=== PATIENT | male | born 1945 | race Caucasian/White ===

== ENCOUNTER 2020-10-07 16:03 | Inpatient (IN) ==
[2020-10-07] MEDS ORDERED: Albuterol 2.5 MG/3 ML NEBULIZER IH PRN (16:44)
[2020-10-07] MEDS: Budesonide/Formoterol 160/4.5 1 PUFF INH IH SCH (20:13)
[2020-10-07] MEDS: Apixaban 5 MG TABLET PO SCH (22:07)
[2020-10-07] MEDS: Melatonin 3 MG TABLET PO PRN (22:10)
[2020-10-07] MEDS: Pregabalin 75 MG CAPSULE PO SCH (22:11)
[2020-10-07] MEDS: Chlorhexidine Rinse 15 ML MOUTHWASH MM SCH (22:13)
[2020-10-07] MEDS: Primidone 50 MG TABLET PO SCH (22:14)
[2020-10-08 04:48] LABS: Basophils % 0.1 %; Eosinophils % 0.2 %; Hematocrit 25.6 % (37.5-50.1); Hemoglobin 8.3 g/dL (12.9-16.9); Immature Granulocytes % 2.9 % (0-4); Lymphocytes # 3.6 K/mcL (0.6-4.6); Lymphocytes % 17.3 %; Mean Corpuscular HGB Conc 32.4 g/dL (31.6-35.5); Mean Corpuscular Hemoglobin 25.8 pg (28.0-33.3); Mean Corpuscular Volume 79.5 fL (83.0-100.0); Mean Platelet Volume 10.1 fL (9.4-12.4); Monocytes # 2.1 K/mcL (0.0-1.3); Neutrophils # 14.4 K/mcL (1.6-8.9); Nucleated Red Blood Cells 0.1 /100 WBC (0); Platelet Count 321 K/mcL (140-400); Red Blood Count 3.22 M/mcL (4.19-5.50); Red Cell Distribution Width 20.2 % (11.5-14.5); Segmented Neutrophils % 69.5 %; White Blood Count 20.7 K/mcL (4.3-11.1)
[2020-10-08 05:03] LABS: Alanine Aminotransferase 21 Units/L (7-52); Albumin/Globulin Ratio 1.7 (1.1-2.2); Alkaline Phosphatase 68 Units/L (34-104); Aspartate Amino Transferase 13 Units/L (13-39); BUN/Creatinine Ratio 34 (6-26); Bilirubin,Total 0.2 mg/dL (0.3-1.0); Blood Urea Nitrogen 23 mg/dL (8-23); Calcium 8.1 mg/dL (8.6-10.3); Carbon Dioxide 27 mEq/L (23-29); Chloride 100 mEq/L (98-107); Globulin 1.8 g/dL (2.4-3.5); Glucose 85 mg/dL (70-105); Osmolality,Calculated 281 (280-300); Potassium 3.9 mEq/L (3.5-5.1); Sodium 134 mEq/L (136-145); Total Protein 4.8 g/dL (6.4-8.9); eGFR For African Americans > 60 (> 60); eGFR For Non-African Americans > 60 (> 60)
[2020-10-08] MEDS: Budesonide/Formoterol 160/4.5 1 PUFF INH IH SCH ×2 (08:33→20:03)
[2020-10-08] MEDS: Apixaban 5 MG TABLET PO SCH ×2 (08:46→20:11)
[2020-10-08] MEDS: Thiamine (B-1) 100 MG TABLET PO SCH (08:46)
[2020-10-08] MEDS: predniSONE 20 MG TABLET PO SCH (08:46)
[2020-10-08] MEDS: Vitamin B Complex/Vit C/Vit E 1 EACH TABLET PO SCH (08:46)
[2020-10-08] MEDS: DilTIAZem CD (24hr) 240 MG CAP.ER.24H PO SCH (08:46)
[2020-10-08] MEDS: Folic Acid 1 MG TABLET PO SCH (08:46)
[2020-10-08] MEDS: polyethylene glycoL 3350 17 GM POWD.PACK PO SCH (08:47)
[2020-10-08] MEDS: Pregabalin 75 MG CAPSULE PO SCH ×2 (08:47→20:08)
[2020-10-08] MEDS: Fluticasone Propionate Nasal 50 MCG/SPRAY BOTTLE NS SCH (08:47)
[2020-10-08] MEDS: Chlorhexidine Rinse 15 ML MOUTHWASH MM SCH ×2 (08:47→20:11)
[2020-10-08] MEDS: Nicotine 21 MG PATCH.TD24 TD SCH (08:47)
[2020-10-08] MEDS: Melatonin 3 MG TABLET PO PRN (20:09)
[2020-10-08] MEDS: Primidone 50 MG TABLET PO SCH (20:09)
[2020-10-09] MEDS: Nicotine 21 MG PATCH.TD24 TD SCH (07:53)
[2020-10-09] MEDS: polyethylene glycoL 3350 17 GM POWD.PACK PO SCH (07:53)
[2020-10-09] MEDS: Chlorhexidine Rinse 15 ML MOUTHWASH MM SCH ×2 (07:53→21:11)
[2020-10-09] MEDS: Thiamine (B-1) 100 MG TABLET PO SCH (07:53)
[2020-10-09] MEDS: Pregabalin 75 MG CAPSULE PO SCH ×2 (07:54→21:11)
[2020-10-09] MEDS: predniSONE 20 MG TABLET PO SCH (07:54)
[2020-10-09] MEDS: Folic Acid 1 MG TABLET PO SCH (07:54)
[2020-10-09] MEDS: DilTIAZem CD (24hr) 240 MG CAP.ER.24H PO SCH (07:54)
[2020-10-09] MEDS: Vitamin B Complex/Vit C/Vit E 1 EACH TABLET PO SCH (07:55)
[2020-10-09] MEDS: Fluticasone Propionate Nasal 50 MCG/SPRAY BOTTLE NS SCH (10:02)
[2020-10-09] MEDS: Apixaban 5 MG TABLET PO SCH ×2 (10:46→21:11)
[2020-10-09] MEDS: Budesonide/Formoterol 160/4.5 1 PUFF INH IH SCH ×2 (10:46→20:08)
[2020-10-09] MEDS: Melatonin 3 MG TABLET PO PRN (21:11)
[2020-10-09] MEDS: Primidone 50 MG TABLET PO SCH (21:11)
[2020-10-10] MEDS: Chlorhexidine Rinse 15 ML MOUTHWASH MM SCH ×2 (08:13→19:42)
[2020-10-10] MEDS: Thiamine (B-1) 100 MG TABLET PO SCH (08:13)
[2020-10-10] MEDS: DilTIAZem CD (24hr) 240 MG CAP.ER.24H PO SCH (08:13)
[2020-10-10] MEDS: Nicotine 21 MG PATCH.TD24 TD SCH (08:13)
[2020-10-10] MEDS: polyethylene glycoL 3350 17 GM POWD.PACK PO SCH (08:13)
[2020-10-10] MEDS: Vitamin B Complex/Vit C/Vit E 1 EACH TABLET PO SCH (08:14)
[2020-10-10] MEDS: Pregabalin 75 MG CAPSULE PO SCH ×2 (08:14→19:42)
[2020-10-10] MEDS: predniSONE 20 MG TABLET PO SCH (08:14)
[2020-10-10] MEDS: Apixaban 5 MG TABLET PO SCH ×2 (08:14→19:42)
[2020-10-10] MEDS: Fluticasone Propionate Nasal 50 MCG/SPRAY BOTTLE NS SCH (08:14)
[2020-10-10] MEDS: Folic Acid 1 MG TABLET PO SCH (08:14)
[2020-10-10] MEDS: Budesonide/Formoterol 160/4.5 1 PUFF INH IH SCH ×2 (10:01→20:37)
[2020-10-10 11:28] LABS: Basophils % 0.1 %; Eosinophils # 0.1 K/mcL (0.0-0.6); Eosinophils % 0.3 %; Hematocrit 27.1 % (37.5-50.1); Hemoglobin 8.7 g/dL (12.9-16.9); Immature Granulocytes % 1.9 % (0-4); Lymphocytes % 9.5 %; Mean Corpuscular HGB Conc 32.1 g/dL (31.6-35.5); Mean Corpuscular Hemoglobin 25.5 pg (28.0-33.3); Mean Corpuscular Volume 79.5 fL (83.0-100.0); Mean Platelet Volume 9.9 fL (9.4-12.4); Monocytes # 2.1 K/mcL (0.0-1.3); Monocytes % 9.7 %; Nucleated Red Blood Cells 0.1 /100 WBC (0); Platelet Count 296 K/mcL (140-400); Red Blood Count 3.41 M/mcL (4.19-5.50); Red Cell Distribution Width 20.5 % (11.5-14.5); Segmented Neutrophils % 78.5 %; White Blood Count 21.2 K/mcL (4.3-11.1)
[2020-10-10 11:37] LABS: Neutrophils # 16.6 K/mcL (1.6-8.9)
[2020-10-10 11:48] LABS: BUN/Creatinine Ratio 38 (6-26); Blood Urea Nitrogen 23 mg/dL (8-23); Calcium 7.9 mg/dL (8.6-10.3); Carbon Dioxide 27 mEq/L (23-29); Chloride 99 mEq/L (98-107); Glucose 99 mg/dL (70-105); Osmolality,Calculated 276 (280-300); Potassium 4.4 mEq/L (3.5-5.1); Sodium 131 mEq/L (136-145); eGFR For African Americans > 60 (> 60); eGFR For Non-African Americans > 60 (> 60)
[2020-10-10] MEDS: Piperacillin/Tazobactam 3.375 GM in 0.9 % Sodium Chloride Mini Bag 100 ML IVPB SCH ×2 (17:53→23:27)
[2020-10-10] MEDS ORDERED: Furosemide 20 MG/2 ML VIAL IVP ONE (18:47)
[2020-10-10] MEDS: Melatonin 3 MG TABLET PO PRN (19:41)
[2020-10-10] MEDS: Primidone 50 MG TABLET PO SCH (19:42)
[2020-10-11] MEDS: Piperacillin/Tazobactam 3.375 GM in 0.9 % Sodium Chloride Mini Bag 100 ML IVPB SCH ×2 (07:42→16:37)
[2020-10-11] MEDS: Nicotine 21 MG PATCH.TD24 TD SCH (07:43)
[2020-10-11] MEDS: polyethylene glycoL 3350 17 GM POWD.PACK PO SCH (07:43)
[2020-10-11] MEDS: Thiamine (B-1) 100 MG TABLET PO SCH (07:44)
[2020-10-11] MEDS: Vitamin B Complex/Vit C/Vit E 1 EACH TABLET PO SCH (07:44)
[2020-10-11] MEDS: Apixaban 5 MG TABLET PO SCH ×2 (07:44→20:04)
[2020-10-11] MEDS: Folic Acid 1 MG TABLET PO SCH (07:44)
[2020-10-11] MEDS: DilTIAZem CD (24hr) 240 MG CAP.ER.24H PO SCH (07:45)
[2020-10-11] MEDS: predniSONE 20 MG TABLET PO SCH (07:45)
[2020-10-11] MEDS: Chlorhexidine Rinse 15 ML MOUTHWASH MM SCH ×2 (07:45→20:04)
[2020-10-11] MEDS: Pregabalin 75 MG CAPSULE PO SCH ×2 (07:45→20:04)
[2020-10-11] MEDS: Fluticasone Propionate Nasal 50 MCG/SPRAY BOTTLE NS SCH (07:46)
[2020-10-11] MEDS: Budesonide/Formoterol 160/4.5 1 PUFF INH IH SCH ×2 (09:53→21:30)
[2020-10-11 10:15] LABS: Basophils % 0.1 %; Eosinophils # 0.1 K/mcL (0.0-0.6); Eosinophils % 0.3 %; Hematocrit 26.8 % (37.5-50.1); Hemoglobin 8.6 g/dL (12.9-16.9); Immature Granulocytes % 1.4 % (0-4); Lymphocytes % 10.9 %; Mean Corpuscular HGB Conc 32.1 g/dL (31.6-35.5); Mean Corpuscular Hemoglobin 25.5 pg (28.0-33.3); Mean Corpuscular Volume 79.5 fL (83.0-100.0); Monocytes # 1.6 K/mcL (0.0-1.3); Monocytes % 8.6 %; Neutrophils # 14.4 K/mcL (1.6-8.9); Platelet Count 276 K/mcL (140-400); Red Blood Count 3.37 M/mcL (4.19-5.50); Red Cell Distribution Width 20.8 % (11.5-14.5); Segmented Neutrophils % 78.7 %; White Blood Count 18.3 K/mcL (4.3-11.1)
[2020-10-11 10:27] LABS: BUN/Creatinine Ratio 29 (6-26); Blood Urea Nitrogen 19 mg/dL (8-23); Carbon Dioxide 29 mEq/L (23-29); Chloride 96 mEq/L (98-107); Glucose 100 mg/dL (70-105); Osmolality,Calculated 274 (280-300); Potassium 3.8 mEq/L (3.5-5.1); Sodium 131 mEq/L (136-145); eGFR For African Americans > 60 (> 60); eGFR For Non-African Americans > 60 (> 60)
[2020-10-11] MEDS: Primidone 50 MG TABLET PO SCH (20:04)
[2020-10-11] MEDS: Melatonin 3 MG TABLET PO PRN (20:04)
[2020-10-11 21:40] LABS: Adenovirus Not Detected (Not Detect); Bordetella Pertussis Not Detected (Not Detect); Chlamydophila pneumoniae Not Detected (Not Detect); Coronavirus 229E Not Detected (Not Detect); Coronavirus HKU1 Not Detected (Not Detect); Coronavirus NL63 Not Detected (Not Detect); Coronavirus OC43 Not Detected (Not Detect); Human Metapneumovirus Not Detected (Not Detect); Human Rhinovirus/Enterovirus Not Detected (Not Detect); Influenza A Subtype 2009 H1 Not Detected (Not Detect); Influenza B Not Detected (Not Detect); Mycoplasma pneumoniae Not Detected (Not Detect); Parainfluenza Virus 1 Not Detected (Not Detect); Parainfluenza Virus 2 Not Detected (Not Detect); Parainfluenza Virus 3 Not Detected (Not Detect); Parainfluenza Virus 4 Not Detected (Not Detect); Respiratory Syncytial Virus Not Detected (Not Detect); SARS-CoV-2 Not Detected (Not Detect)
[2020-10-12] MEDS: Piperacillin/Tazobactam 3.375 GM in 0.9 % Sodium Chloride Mini Bag 100 ML IVPB SCH ×3 (00:15→15:19)
[2020-10-12 05:47] LABS: Hematocrit 26.2 % (37.5-50.1); Hemoglobin 8.2 g/dL (12.9-16.9); Mean Corpuscular HGB Conc 31.3 g/dL (31.6-35.5); Mean Corpuscular Volume 79.9 fL (83.0-100.0); Mean Platelet Volume 9.9 fL (9.4-12.4); Platelet Count 282 K/mcL (140-400); Red Blood Count 3.28 M/mcL (4.19-5.50); Red Cell Distribution Width 21.1 % (11.5-14.5); White Blood Count 13.8 K/mcL (4.3-11.1)
[2020-10-12] MEDS: Vitamin B Complex/Vit C/Vit E 1 EACH TABLET PO SCH (08:30)
[2020-10-12] MEDS: Apixaban 5 MG TABLET PO SCH ×2 (08:31→20:20)
[2020-10-12] MEDS: Chlorhexidine Rinse 15 ML MOUTHWASH MM SCH ×2 (08:31→20:21)
[2020-10-12] MEDS: Nicotine 21 MG PATCH.TD24 TD SCH (08:31)
[2020-10-12] MEDS: Folic Acid 1 MG TABLET PO SCH (08:31)
[2020-10-12] MEDS: predniSONE 10 MG TABLET PO SCH (08:31)
[2020-10-12] MEDS: DilTIAZem CD (24hr) 240 MG CAP.ER.24H PO SCH (08:31)
[2020-10-12] MEDS: Pregabalin 75 MG CAPSULE PO SCH ×2 (08:31→20:20)
[2020-10-12] MEDS: Fluticasone Propionate Nasal 50 MCG/SPRAY BOTTLE NS SCH (08:32)
[2020-10-12] MEDS: Thiamine (B-1) 100 MG TABLET PO SCH (08:32)
[2020-10-12] MEDS: polyethylene glycoL 3350 17 GM POWD.PACK PO SCH (08:32)
[2020-10-12] MEDS: Budesonide/Formoterol 160/4.5 1 PUFF INH IH SCH ×2 (09:55→21:28)
[2020-10-12] MEDS: Primidone 50 MG TABLET PO SCH (20:20)
[2020-10-12] MEDS: Melatonin 3 MG TABLET PO PRN (20:20)
[2020-10-13] MEDS: Piperacillin/Tazobactam 3.375 GM in 0.9 % Sodium Chloride Mini Bag 100 ML IVPB SCH ×3 (00:24→18:08)
[2020-10-13] MEDS: Budesonide/Formoterol 160/4.5 1 PUFF INH IH SCH ×2 (09:48→21:19)
[2020-10-13] MEDS: Thiamine (B-1) 100 MG TABLET PO SCH (10:05)
[2020-10-13] MEDS: Furosemide 20 MG TABLET PO SCH (10:06)
[2020-10-13] MEDS: Pregabalin 75 MG CAPSULE PO SCH ×2 (10:06→21:52)
[2020-10-13] MEDS: Vitamin B Complex/Vit C/Vit E 1 EACH TABLET PO SCH (10:06)
[2020-10-13] MEDS: predniSONE 10 MG TABLET PO SCH (10:06)
[2020-10-13] MEDS: Nicotine 21 MG PATCH.TD24 TD SCH (10:07)
[2020-10-13] MEDS: Apixaban 5 MG TABLET PO SCH ×2 (10:07→21:52)
[2020-10-13] MEDS: Folic Acid 1 MG TABLET PO SCH (10:07)
[2020-10-13] MEDS: Chlorhexidine Rinse 15 ML MOUTHWASH MM SCH ×2 (10:07→21:53)
[2020-10-13] MEDS: DilTIAZem CD (24hr) 240 MG CAP.ER.24H PO SCH (10:07)
[2020-10-13] MEDS: polyethylene glycoL 3350 17 GM POWD.PACK PO SCH (10:09)
[2020-10-13] MEDS: Fluticasone Propionate Nasal 50 MCG/SPRAY BOTTLE NS SCH (10:10)
[2020-10-13] MEDS: Primidone 50 MG TABLET PO SCH (21:53)
[2020-10-14] MEDS: Piperacillin/Tazobactam 3.375 GM in 0.9 % Sodium Chloride Mini Bag 100 ML IVPB SCH ×4 (00:19→23:26)
[2020-10-14] MEDS: Chlorhexidine Rinse 15 ML MOUTHWASH MM SCH ×2 (08:41→20:29)
[2020-10-14] MEDS: polyethylene glycoL 3350 17 GM POWD.PACK PO SCH (08:41)
[2020-10-14] MEDS: Nicotine 21 MG PATCH.TD24 TD SCH (08:42)
[2020-10-14] MEDS: Pregabalin 75 MG CAPSULE PO SCH ×2 (08:44→20:29)
[2020-10-14] MEDS: Folic Acid 1 MG TABLET PO SCH (08:44)
[2020-10-14] MEDS: DilTIAZem CD (24hr) 240 MG CAP.ER.24H PO SCH (08:44)
[2020-10-14] MEDS: Vitamin B Complex/Vit C/Vit E 1 EACH TABLET PO SCH (08:44)
[2020-10-14] MEDS: Apixaban 5 MG TABLET PO SCH ×2 (08:44→20:29)
[2020-10-14] MEDS: predniSONE 10 MG TABLET PO SCH (08:44)
[2020-10-14] MEDS: Thiamine (B-1) 100 MG TABLET PO SCH (08:44)
[2020-10-14] MEDS: Furosemide 20 MG TABLET PO SCH (08:44)
[2020-10-14] MEDS: Fluticasone Propionate Nasal 50 MCG/SPRAY BOTTLE NS SCH (08:45)
[2020-10-14] MEDS: Budesonide/Formoterol 160/4.5 1 PUFF INH IH SCH ×2 (11:06→19:29)
[2020-10-14] MEDS: Melatonin 3 MG TABLET PO PRN (20:29)
[2020-10-14] MEDS: Primidone 50 MG TABLET PO SCH (20:29)
[2020-10-15] MEDS: Nicotine 21 MG PATCH.TD24 TD SCH (08:05)
[2020-10-15] MEDS: DilTIAZem CD (24hr) 240 MG CAP.ER.24H PO SCH (08:06)
[2020-10-15] MEDS: Vitamin B Complex/Vit C/Vit E 1 EACH TABLET PO SCH (08:06)
[2020-10-15] MEDS: Folic Acid 1 MG TABLET PO SCH (08:06)
[2020-10-15] MEDS: Thiamine (B-1) 100 MG TABLET PO SCH (08:06)
[2020-10-15] MEDS: Pregabalin 75 MG CAPSULE PO SCH ×2 (08:06→20:29)
[2020-10-15] MEDS: predniSONE 10 MG TABLET PO SCH (08:06)
[2020-10-15] MEDS: Apixaban 5 MG TABLET PO SCH ×2 (08:06→20:29)
[2020-10-15] MEDS: Furosemide 20 MG TABLET PO SCH (08:06)
[2020-10-15] MEDS: Piperacillin/Tazobactam 3.375 GM in 0.9 % Sodium Chloride Mini Bag 100 ML IVPB SCH ×3 (08:08→23:06)
[2020-10-15] MEDS: Chlorhexidine Rinse 15 ML MOUTHWASH MM SCH ×2 (08:13→20:29)
[2020-10-15] MEDS: Budesonide/Formoterol 160/4.5 1 PUFF INH IH SCH ×2 (10:02→20:10)
[2020-10-15] MEDS: polyethylene glycoL 3350 17 GM POWD.PACK PO SCH (10:32)
[2020-10-15] MEDS: Fluticasone Propionate Nasal 50 MCG/SPRAY BOTTLE NS SCH (10:32)
[2020-10-15] MEDS: ALPRAZolam 0.25 MG TABLET PO PRN ×2 (15:04→23:07)
[2020-10-15] MEDS: Melatonin 3 MG TABLET PO PRN (20:29)
[2020-10-15] MEDS: Primidone 50 MG TABLET PO SCH (20:29)
[2020-10-16] MEDS: Piperacillin/Tazobactam 3.375 GM in 0.9 % Sodium Chloride Mini Bag 100 ML IVPB SCH ×2 (08:33→16:57)
[2020-10-16] MEDS: Nicotine 21 MG PATCH.TD24 TD SCH (08:35)
[2020-10-16] MEDS: Chlorhexidine Rinse 15 ML MOUTHWASH MM SCH ×2 (08:35→21:27)
[2020-10-16] MEDS: Pregabalin 75 MG CAPSULE PO SCH ×2 (08:37→21:28)
[2020-10-16] MEDS: Apixaban 5 MG TABLET PO SCH ×2 (08:37→21:27)
[2020-10-16] MEDS: Vitamin B Complex/Vit C/Vit E 1 EACH TABLET PO SCH (08:37)
[2020-10-16] MEDS: DilTIAZem CD (24hr) 240 MG CAP.ER.24H PO SCH (08:37)
[2020-10-16] MEDS: Thiamine (B-1) 100 MG TABLET PO SCH (08:37)
[2020-10-16] MEDS: Furosemide 20 MG TABLET PO SCH (08:37)
[2020-10-16] MEDS: predniSONE 10 MG TABLET PO SCH (08:37)
[2020-10-16] MEDS: Folic Acid 1 MG TABLET PO SCH (08:38)
[2020-10-16] MEDS: polyethylene glycoL 3350 17 GM POWD.PACK PO SCH (08:39)
[2020-10-16] MEDS: Fluticasone Propionate Nasal 50 MCG/SPRAY BOTTLE NS SCH (08:44)
[2020-10-16] MEDS: Budesonide/Formoterol 160/4.5 1 PUFF INH IH SCH ×2 (11:23→20:35)
[2020-10-16] MEDS: ALPRAZolam 0.25 MG TABLET PO PRN (21:27)
[2020-10-16] MEDS: Melatonin 3 MG TABLET PO PRN (21:27)
[2020-10-16] MEDS: Primidone 50 MG TABLET PO SCH (21:27)
[2020-10-17] MEDS: Piperacillin/Tazobactam 3.375 GM in 0.9 % Sodium Chloride Mini Bag 100 ML IVPB SCH ×3 (02:30→15:31)
[2020-10-17] MEDS: Nicotine 21 MG PATCH.TD24 TD SCH (08:49)
[2020-10-17] MEDS: predniSONE 10 MG TABLET PO SCH (08:51)
[2020-10-17] MEDS: DilTIAZem CD (24hr) 240 MG CAP.ER.24H PO SCH (08:51)
[2020-10-17] MEDS: Furosemide 20 MG TABLET PO SCH (08:51)
[2020-10-17] MEDS: Folic Acid 1 MG TABLET PO SCH (08:51)
[2020-10-17] MEDS: Pregabalin 75 MG CAPSULE PO SCH ×2 (08:51→20:13)
[2020-10-17] MEDS: Chlorhexidine Rinse 15 ML MOUTHWASH MM SCH ×2 (08:52→20:13)
[2020-10-17] MEDS: Vitamin B Complex/Vit C/Vit E 1 EACH TABLET PO SCH (08:52)
[2020-10-17] MEDS: Apixaban 5 MG TABLET PO SCH ×2 (08:52→20:12)
[2020-10-17] MEDS: Thiamine (B-1) 100 MG TABLET PO SCH (08:52)
[2020-10-17] MEDS: polyethylene glycoL 3350 17 GM POWD.PACK PO SCH (08:55)
[2020-10-17] MEDS: Budesonide/Formoterol 160/4.5 1 PUFF INH IH SCH ×2 (09:58→20:47)
[2020-10-17] MEDS: Fluticasone Propionate Nasal 50 MCG/SPRAY BOTTLE NS SCH ×2 (13:27→20:59)
[2020-10-17] MEDS: ALPRAZolam 0.25 MG TABLET PO PRN ×2 (15:33→20:12)
[2020-10-17] MEDS: Primidone 50 MG TABLET PO SCH (20:12)
[2020-10-17] MEDS: Melatonin 3 MG TABLET PO PRN (20:13)
[2020-10-17 20:49] VITALS: RESP 20
[2020-10-18] MEDS: Piperacillin/Tazobactam 3.375 GM in 0.9 % Sodium Chloride Mini Bag 100 ML IVPB SCH ×2 (00:02→09:00)
[2020-10-18 07:06] VITALS: BP 114/65; PULSE 79; TEMP 97.3; O2SAT 91
[2020-10-18] MEDS: predniSONE 10 MG TABLET PO SCH (09:00)
[2020-10-18] MEDS: Pregabalin 75 MG CAPSULE PO SCH (09:01)
[2020-10-18] MEDS: Thiamine (B-1) 100 MG TABLET PO SCH (09:01)
[2020-10-18] MEDS: Apixaban 5 MG TABLET PO SCH (09:01)
[2020-10-18] MEDS: Vitamin B Complex/Vit C/Vit E 1 EACH TABLET PO SCH (09:01)
[2020-10-18] MEDS: Folic Acid 1 MG TABLET PO SCH (09:01)
[2020-10-18] MEDS: DilTIAZem CD (24hr) 240 MG CAP.ER.24H PO SCH (09:01)
[2020-10-18] MEDS: Furosemide 20 MG TABLET PO SCH (09:01)
[2020-10-18] MEDS: Chlorhexidine Rinse 15 ML MOUTHWASH MM SCH (09:02)
[2020-10-18] MEDS: polyethylene glycoL 3350 17 GM POWD.PACK PO SCH (09:04)
[2020-10-18] MEDS: Budesonide/Formoterol 160/4.5 1 PUFF INH IH SCH (12:41)
== END 2020-10-18 12:35 | DRG 945 ==
LOC: INPGRE 17:30
PROVIDERS: ADMIT Family Medicine; ATTEND Family Medicine

== ENCOUNTER 2021-01-19 19:44 | Inpatient (IN) ==
[2021-01-19] MEDS ORDERED: methylPREDNISolone 125 MG/2 ML VIAL IVP ONE (20:15)
[2021-01-19] MEDS ORDERED: levoFLOXacin 500 MG/100 ML 500 MG/100 ML BAG IVPB SCH (21:00)
[2021-01-19] MEDS ORDERED: Ipratropium/Albuterol Neb 3 ML IH SCH ×2 (21:49→23:00)
[2021-01-19] MEDS ORDERED: Nicotine 2 MG GUM BC PRN (21:49)
[2021-01-19] MEDS ORDERED: Simethicone 80 MG TAB.CHEW PO PRN (21:49)
[2021-01-19] MEDS ORDERED: Fluticasone Propionate Nasal 50 MCG/SPRAY BOTTLE NS PRN (21:49)
[2021-01-19] MEDS: Ipratropium/Albuterol Neb 3 ML IH SCH (21:58)
[2021-01-19] MEDS: Apixaban 5 MG TABLET PO SCH (23:17)
[2021-01-19] MEDS: Melatonin 3 MG TABLET PO SCH (23:17)
[2021-01-19] MEDS: *HR* LORazepam 0.5 MG TABLET PO SCH (23:17)
[2021-01-19] MEDS: Sennosides 8.6 MG TABLET PO SCH (23:18)
[2021-01-19] MEDS: Pregabalin 75 MG CAPSULE PO SCH (23:18)
[2021-01-19] MEDS: traZODone 50 MG TABLET PO SCH (23:18)
[2021-01-19] MEDS: Mirtazapine 15 MG TABLET PO SCH (23:18)
[2021-01-19] MEDS: GuaiFENesin Liq 200 MG/10 ML UDC PO SCH (23:19)
[2021-01-19] MEDS: DICLOFENAC SODIUM TP SCH (23:20)
[2021-01-20] MEDS ORDERED: MethylPREDNISolone 40 MG/ML VIAL IVP SCH (03:00)
[2021-01-20] MEDS: Ipratropium/Albuterol Neb 3 ML IH SCH ×4 (04:18→22:29)
[2021-01-20 04:46] LABS: Basophils % 0.1 %; Eosinophils % 0.1 %; Hematocrit 25.2 % (37.5-50.1); Hemoglobin 7.3 g/dL (12.9-16.9); Immature Granulocytes % 0.6 % (0-4); Lymphocytes # 0.6 K/mcL (0.6-4.6); Lymphocytes % 7.7 %; Mean Corpuscular Hemoglobin 20.6 pg (28.0-33.3); Mean Platelet Volume 10.9 fL (9.4-12.4); Monocytes # 0.1 K/mcL (0.0-1.3); Neutrophils # 7.4 K/mcL (1.6-8.9); Platelet Count 319 K/mcL (140-400); Red Blood Count 3.55 M/mcL (4.19-5.50); Red Cell Distribution Width 17.9 % (11.5-14.5); Segmented Neutrophils % 90.5 %; White Blood Count 8.2 K/mcL (4.3-11.1)
[2021-01-20 04:59] LABS: Alanine Aminotransferase 7 Units/L (7-52); Albumin 3.6 g/dL (3.5-5.7); Albumin/Globulin Ratio 1.2 (1.1-2.2); Alkaline Phosphatase 92 Units/L (34-104); Aspartate Amino Transferase 9 Units/L (13-39); BUN/Creatinine Ratio 23 (6-26); Bilirubin,Total 0.3 mg/dL (0.3-1.0); Blood Urea Nitrogen 18 mg/dL (8-23); Carbon Dioxide 26 mEq/L (23-29); Chloride 107 mEq/L (98-107); Globulin 3.1 g/dL (2.4-3.5); Glucose 140 mg/dL (70-105); Osmolality,Calculated 296 (280-300); Sodium 141 mEq/L (136-145); Total Protein 6.7 g/dL (6.4-8.9); eGFR For African Americans > 60 (> 60); eGFR For Non-African Americans > 60 (> 60)
[2021-01-20] MEDS: MethylPREDNISolone 40 MG/ML VIAL IVP SCH ×4 (06:48→23:25)
[2021-01-20] MEDS: Budesonide/Formoterol 80/4.5 1 PUFF INH IH SCH ×2 (09:21→22:29)
[2021-01-20] MEDS: Apixaban 5 MG TABLET PO SCH ×2 (09:38→22:00)
[2021-01-20] MEDS: Furosemide 20 MG TABLET PO SCH (09:38)
[2021-01-20] MEDS: *HR* LORazepam 0.5 MG TABLET PO SCH ×2 (09:39→22:00)
[2021-01-20] MEDS: Sennosides 8.6 MG TABLET PO SCH ×2 (09:39→22:00)
[2021-01-20] MEDS: DilTIAZem CD (24hr) 240 MG CAP.ER.24H PO SCH (09:39)
[2021-01-20] MEDS: Vitamin B Complex/Vit C/Vit E 1 EACH TABLET PO SCH (09:39)
[2021-01-20] MEDS: GuaiFENesin Liq 200 MG/10 ML UDC PO SCH ×3 (09:41→21:57)
[2021-01-20] MEDS: Nicotine 21 MG PATCH.TD24 TD SCH (09:41)
[2021-01-20] MEDS: DICLOFENAC SODIUM TP SCH (09:41)
[2021-01-20] MEDS: polyethylene glycoL 3350 17 GM POWD.PACK PO SCH (09:41)
[2021-01-20] MEDS: Pregabalin 75 MG CAPSULE PO SCH ×2 (09:43→22:00)
[2021-01-20] MEDS ORDERED: cefTRIAXone 1,000 MG in 0.9 % Sodium Chloride Mini Bag 100 ML IVPB SCH (18:00)
[2021-01-20] MEDS: traZODone 50 MG TABLET PO SCH (22:00)
[2021-01-20] MEDS: Melatonin 3 MG TABLET PO SCH (22:00)
[2021-01-20] MEDS: Mirtazapine 15 MG TABLET PO SCH (22:00)
[2021-01-20] MEDS: levoFLOXacin 500 MG/100 ML 500 MG/100 ML BAG IVPB SCH (22:11)
[2021-01-21] MEDS: Ipratropium/Albuterol Neb 3 ML IH SCH ×4 (04:10→21:51)
[2021-01-21 05:13] LABS: Basophils % 0.1 %; Hematocrit 23.9 % (37.5-50.1); Immature Granulocytes % 0.7 % (0-4); Lymphocytes # 1.1 K/mcL (0.6-4.6); Lymphocytes % 5.6 %; Mean Corpuscular HGB Conc 29.3 g/dL (31.6-35.5); Mean Corpuscular Hemoglobin 21.1 pg (28.0-33.3); Mean Corpuscular Volume 72.2 fL (83.0-100.0); Mean Platelet Volume 11.1 fL (9.4-12.4); Monocytes # 0.4 K/mcL (0.0-1.3); Neutrophils # 18.2 K/mcL (1.6-8.9); Platelet Count 351 K/mcL (140-400); Red Blood Count 3.31 M/mcL (4.19-5.50); Red Cell Distribution Width 17.8 % (11.5-14.5); Segmented Neutrophils % 91.6 %; White Blood Count 19.9 K/mcL (4.3-11.1)
[2021-01-21 05:20] LABS: BUN/Creatinine Ratio 28 (6-26); Blood Urea Nitrogen 23 mg/dL (8-23); Calcium 8.7 mg/dL (8.6-10.3); Carbon Dioxide 26 mEq/L (23-29); Chloride 108 mEq/L (98-107); Glucose 126 mg/dL (70-105); Osmolality,Calculated 299 (280-300); Potassium 3.8 mEq/L (3.5-5.1); Sodium 142 mEq/L (136-145); eGFR For African Americans > 60 (> 60); eGFR For Non-African Americans > 60 (> 60)
[2021-01-21] MEDS: Furosemide 20 MG TABLET PO SCH (09:23)
[2021-01-21] MEDS: DilTIAZem CD (24hr) 240 MG CAP.ER.24H PO SCH (09:23)
[2021-01-21] MEDS: Pregabalin 75 MG CAPSULE PO SCH ×2 (09:23→21:12)
[2021-01-21] MEDS: Vitamin B Complex/Vit C/Vit E 1 EACH TABLET PO SCH (09:23)
[2021-01-21] MEDS: Sennosides 8.6 MG TABLET PO SCH ×2 (09:23→21:12)
[2021-01-21] MEDS: *HR* LORazepam 0.5 MG TABLET PO SCH ×2 (09:24→21:13)
[2021-01-21] MEDS: polyethylene glycoL 3350 17 GM POWD.PACK PO SCH (09:24)
[2021-01-21] MEDS: Nicotine 21 MG PATCH.TD24 TD SCH (09:24)
[2021-01-21] MEDS: Apixaban 5 MG TABLET PO SCH ×2 (09:24→21:12)
[2021-01-21] MEDS: MethylPREDNISolone 40 MG/ML VIAL IVP SCH ×2 (09:24→16:26)
[2021-01-21] MEDS: GuaiFENesin Liq 200 MG/10 ML UDC PO SCH ×3 (09:24→21:15)
[2021-01-21] MEDS: Budesonide/Formoterol 80/4.5 1 PUFF INH IH SCH ×2 (10:13→21:51)
[2021-01-21] MEDS ORDERED: Furosemide 20 MG/2 ML VIAL IVP ONE ×2 (13:15→21:00)
[2021-01-21] MEDS ORDERED: Isovue-370 500 ML BOTTLE IVP ONE (16:24)
[2021-01-21] MEDS ORDERED: 0.9 % Sodium Chloride 250 ML ONE (17:33)
[2021-01-21 20:18] LABS: Iron < 10 mcg/dL (65-175)
[2021-01-21] MEDS: traZODone 50 MG TABLET PO SCH (21:13)
[2021-01-21] MEDS: Mirtazapine 15 MG TABLET PO SCH (21:14)
[2021-01-21] MEDS: Melatonin 3 MG TABLET PO SCH (21:15)
[2021-01-21] MEDS: levoFLOXacin 500 MG/100 ML 500 MG/100 ML BAG IVPB SCH (21:27)
[2021-01-22] MEDS: MethylPREDNISolone 40 MG/ML VIAL IVP SCH ×4 (00:29→23:47)
[2021-01-22] MEDS: Ipratropium/Albuterol Neb 3 ML IH SCH ×4 (04:11→19:40)
[2021-01-22 06:18] LABS: Basophils % 0.1 %; Hematocrit 28.1 % (37.5-50.1); Hemoglobin 8.5 g/dL (12.9-16.9); Immature Granulocytes % 1.1 % (0-4); Lymphocytes # 1.1 K/mcL (0.6-4.6); Lymphocytes % 5.4 %; Mean Corpuscular HGB Conc 30.2 g/dL (31.6-35.5); Mean Corpuscular Hemoglobin 22.5 pg (28.0-33.3); Mean Corpuscular Volume 74.3 fL (83.0-100.0); Mean Platelet Volume 10.8 fL (9.4-12.4); Monocytes % 2.8 %; Neutrophils # 17.6 K/mcL (1.6-8.9); Nucleated Red Blood Cells 0.1 /100 WBC (0); Platelet Count 341 K/mcL (140-400); Red Blood Count 3.78 M/mcL (4.19-5.50); Red Cell Distribution Width 19.9 % (11.5-14.5); Segmented Neutrophils % 90.6 %; White Blood Count 19.4 K/mcL (4.3-11.1)
[2021-01-22 06:28] LABS: Monocytes # 0.5 K/mcL (0.0-1.3)
[2021-01-22 06:42] LABS: BUN/Creatinine Ratio 31 (6-26); Blood Urea Nitrogen 26 mg/dL (8-23); Calcium 8.7 mg/dL (8.6-10.3); Carbon Dioxide 26 mEq/L (23-29); Chloride 107 mEq/L (98-107); Glucose 137 mg/dL (70-105); Osmolality,Calculated 301 (280-300); Potassium 3.2 mEq/L (3.5-5.1); Sodium 142 mEq/L (136-145); eGFR For African Americans > 60 (> 60); eGFR For Non-African Americans > 60 (> 60)
[2021-01-22] MEDS: GuaiFENesin Liq 200 MG/10 ML UDC PO SCH ×3 (08:46→20:25)
[2021-01-22] MEDS: Sennosides 8.6 MG TABLET PO SCH ×2 (08:46→20:34)
[2021-01-22] MEDS: Pregabalin 75 MG CAPSULE PO SCH ×2 (08:47→20:36)
[2021-01-22] MEDS: Vitamin B Complex/Vit C/Vit E 1 EACH TABLET PO SCH (08:47)
[2021-01-22] MEDS: DilTIAZem CD (24hr) 240 MG CAP.ER.24H PO SCH (08:48)
[2021-01-22] MEDS: *HR* LORazepam 0.5 MG TABLET PO SCH ×2 (08:48→20:32)
[2021-01-22] MEDS: Apixaban 5 MG TABLET PO SCH ×2 (08:48→20:28)
[2021-01-22] MEDS: Furosemide 20 MG TABLET PO SCH (08:48)
[2021-01-22] MEDS: polyethylene glycoL 3350 17 GM POWD.PACK PO SCH (08:49)
[2021-01-22] MEDS: Nicotine 21 MG PATCH.TD24 TD SCH (08:49)
[2021-01-22] MEDS: Budesonide/Formoterol 80/4.5 1 PUFF INH IH SCH ×2 (10:16→19:41)
[2021-01-22] MEDS: Furosemide 20 MG/2 ML VIAL IVP SCH (18:10)
[2021-01-22] MEDS: Mirtazapine 15 MG TABLET PO SCH (20:28)
[2021-01-22] MEDS: traZODone 50 MG TABLET PO SCH (20:34)
[2021-01-22] MEDS: Melatonin 3 MG TABLET PO SCH (20:37)
[2021-01-22] MEDS: levoFLOXacin 500 MG/100 ML 500 MG/100 ML BAG IVPB SCH (20:37)
[2021-01-23] MEDS: Ipratropium/Albuterol Neb 3 ML IH SCH ×4 (03:34→21:31)
[2021-01-23 05:03] LABS: Hematocrit 29.1 % (37.5-50.1); Hemoglobin 8.7 g/dL (12.9-16.9); Mean Corpuscular HGB Conc 29.9 g/dL (31.6-35.5); Mean Corpuscular Hemoglobin 22.3 pg (28.0-33.3); Mean Corpuscular Volume 74.6 fL (83.0-100.0); Mean Platelet Volume 10.6 fL (9.4-12.4); Platelet Count 342 K/mcL (140-400); Red Cell Distribution Width 19.9 % (11.5-14.5)
[2021-01-23 05:17] LABS: BUN/Creatinine Ratio 31 (6-26); Blood Urea Nitrogen 27 mg/dL (8-23); Calcium 8.3 mg/dL (8.6-10.3); Carbon Dioxide 27 mEq/L (23-29); Chloride 106 mEq/L (98-107); Glucose 168 mg/dL (70-105); Osmolality,Calculated 303 (280-300); Potassium 3.4 mEq/L (3.5-5.1); Sodium 142 mEq/L (136-145); eGFR For African Americans > 60 (> 60); eGFR For Non-African Americans > 60 (> 60)
[2021-01-23] MEDS: MethylPREDNISolone 40 MG/ML VIAL IVP SCH ×3 (08:18→17:44)
[2021-01-23] MEDS: Sennosides 8.6 MG TABLET PO SCH ×2 (08:19→20:05)
[2021-01-23] MEDS: Vitamin B Complex/Vit C/Vit E 1 EACH TABLET PO SCH (08:19)
[2021-01-23] MEDS: Apixaban 5 MG TABLET PO SCH ×2 (08:19→20:05)
[2021-01-23] MEDS: GuaiFENesin Liq 200 MG/10 ML UDC PO SCH ×3 (08:20→20:03)
[2021-01-23] MEDS: Pregabalin 75 MG CAPSULE PO SCH ×2 (08:20→20:05)
[2021-01-23] MEDS: DilTIAZem CD (24hr) 240 MG CAP.ER.24H PO SCH (08:20)
[2021-01-23] MEDS: *HR* LORazepam 0.5 MG TABLET PO SCH ×2 (08:20→20:06)
[2021-01-23] MEDS: polyethylene glycoL 3350 17 GM POWD.PACK PO SCH (08:20)
[2021-01-23] MEDS: Furosemide 20 MG/2 ML VIAL IVP SCH (08:20)
[2021-01-23] MEDS: Nicotine 21 MG PATCH.TD24 TD SCH (08:37)
[2021-01-23] MEDS: Budesonide/Formoterol 80/4.5 1 PUFF INH IH SCH ×2 (10:57→21:31)
[2021-01-23] MEDS ORDERED: CefTRIAXone 1,000 MG VIAL ONE (19:57)
[2021-01-23] MEDS ORDERED: cefTRIAXone 1,000 MG in Water for inj. (sterile) 10 ML IVP SCH (20:00)
[2021-01-23] MEDS: Mirtazapine 15 MG TABLET PO SCH (20:03)
[2021-01-23] MEDS: traZODone 50 MG TABLET PO SCH (20:05)
[2021-01-23] MEDS: Melatonin 3 MG TABLET PO SCH (20:06)
[2021-01-24] MEDS: Ipratropium/Albuterol Neb 3 ML IH SCH ×3 (03:30→16:04)
[2021-01-24] MEDS: MethylPREDNISolone 40 MG/ML VIAL IVP SCH (04:58)
[2021-01-24 07:07] LABS: Hematocrit 29.5 % (37.5-50.1); Mean Corpuscular HGB Conc 30.5 g/dL (31.6-35.5); Mean Corpuscular Hemoglobin 22.7 pg (28.0-33.3); Mean Corpuscular Volume 74.5 fL (83.0-100.0); Mean Platelet Volume 10.6 fL (9.4-12.4); Platelet Count 352 K/mcL (140-400); Red Blood Count 3.96 M/mcL (4.19-5.50); Red Cell Distribution Width 19.9 % (11.5-14.5); White Blood Count 13.9 K/mcL (4.3-11.1)
[2021-01-24 07:27] LABS: BUN/Creatinine Ratio 29 (6-26); Blood Urea Nitrogen 22 mg/dL (8-23); Calcium 8.3 mg/dL (8.6-10.3); Carbon Dioxide 27 mEq/L (23-29); Chloride 108 mEq/L (98-107); Glucose 134 mg/dL (70-105); Osmolality,Calculated 299 (280-300); Sodium 142 mEq/L (136-145); eGFR For African Americans > 60 (> 60); eGFR For Non-African Americans > 60 (> 60)
[2021-01-24] MEDS: GuaiFENesin Liq 200 MG/10 ML UDC PO SCH (08:11)
[2021-01-24] MEDS: polyethylene glycoL 3350 17 GM POWD.PACK PO SCH (08:11)
[2021-01-24] MEDS: DilTIAZem CD (24hr) 240 MG CAP.ER.24H PO SCH (08:12)
[2021-01-24] MEDS: Sennosides 8.6 MG TABLET PO SCH (08:12)
[2021-01-24] MEDS: Apixaban 5 MG TABLET PO SCH (08:12)
[2021-01-24] MEDS: *HR* LORazepam 0.5 MG TABLET PO SCH (08:12)
[2021-01-24] MEDS: Vitamin B Complex/Vit C/Vit E 1 EACH TABLET PO SCH (08:13)
[2021-01-24] MEDS: Pregabalin 75 MG CAPSULE PO SCH (08:13)
[2021-01-24] MEDS: Nicotine 21 MG PATCH.TD24 TD SCH (08:13)
[2021-01-24] MEDS: Furosemide 20 MG/2 ML VIAL IVP SCH (08:13)
[2021-01-24] MEDS: Budesonide/Formoterol 80/4.5 1 PUFF INH IH SCH (10:35)
[2021-01-24 16:11] VITALS: RESP 20; O2SAT 94
[2021-01-24 17:00] VITALS: BP 113/63; PULSE 71; TEMP 97.5
[2021-01-27 12:05] LABS: Transferrin 278 mg/dL (200-400)
== END 2021-01-24 17:39 | DRG 193 ==
LOC: INPGRE 19:44 → EMEROOGRE 19:44 → INPGRE 21:23
PROVIDERS: ADMIT Family Medicine; ATTEND Family Medicine